=== PATIENT | female | born 1980 | race Caucasian/White ===

== ENCOUNTER 2020-05-22 16:42 | Emergency (ER) | payer BC, OTHER ==
[2020-05-22 17:57] VITALS: BP 122/73; PULSE 64
[2020-05-22] MEDS ORDERED: Bacitracin Oint 1 GM U/D Packet TOP ONE (18:08)
[2020-05-22] MEDS ORDERED: Diphtheria,Pertussis(Acell),Tetanus Vaccine 0.5 ML SDV IM ONE (18:08)
--- NOTE | 2020-05-22 18:11 | EDM.PDOC ---
ED HPI GENERAL MEDICAL PROBLEM - General Chief Complaint: Laceration Stated Complaint: CUT R FOOT Time Seen by Provider: 05/22/20 18:00 Source of Information: Reports: Patient History Limitations: Reports: No Limitations - History of Present Illness INITIAL COMMENTS - FREE TEXT/NARRATIVE: 40-year-old female with 2 small lacerations on the inside aspect of her right ankle. 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: - Past Surgical History GI Surgical History: Reports: Hernia Repair/Other Musculoskeletal Surgical History: Reports: Arthroscopic Knee Social & Family History - Tobacco Use Smoking Status *Q: Never Smoker ED ROS GENERAL - Review of Systems Review Of Systems: See Below Constitutional: Denies: Fever, Chills Respiratory: Denies: Shortness of Breath Cardiovascular: Denies: Chest Pain GI/Abdominal: Denies: Abdominal Pain, Nausea, Vomiting Skin: Reports: Other (No other injury other than the small lacerations on her right ankle) ED EXAM, SKIN/RASH Exam: See Below Exam Limited By: No Limitations General Appearance: Alert, No Apparent Distress Respiratory/Chest: No Respiratory Distress Extremities: Other Neurological: Alert, Oriented Skin: Other (On the medial aspect of the right ankle the patient has 2 small lacerations, one 1 cm long and the other 2 cm long. The small laceration needs no repair, the larger laceration is slightly open so will be Steri-Stripped closed. Both were washed, a small amount of bacitracin applied to the small laceration) Course - Vital Signs Last Recorded V/S: Last Vital Signs Temp 95.8 F L 05/22/20 18:03 Pulse 64 05/22/20 18:03 Resp 16 05/22/20 18:03 BP 122/73 05/22/20 18:03 Pulse Ox 99 05/22/20 18:03 - Orders/Labs/Meds Orders: Active Orders 24 hr Category Date Time Status Vaccines to be Administered [RC] PER UNIT ROUTINE Care 05/22/20 18:08 Active Meds: Medications Discontinued Medications Generic Name Dose Route Start Last Admin Trade Name Milton PRN Reason Stop Dose Admin Bacitracin 1 dose 05/22/20 18:08 05/22/20 18:24 Bacitracin Oint 1 Gm TOP 05/22/20 18:09 1 dose ONETIME ONE Administration Diphtheria/Tetanus/Acell Pertussis 0.5 ml 05/22/20 18:08 05/22/20 18:22 Adacel IM 05/22/20 18:09 0.5 ml .ONCE ONE Administration - Re-Assessments/Exams Free Text/Narrative Re-Assessment/Exam: 05/22/20 18:10 Both lacerations were washed, small amount of bacitracin applied to the small wound with a Band-Aid and Steri-Strips were used to close the 2 cm laceration. Increase activity as tolerated recheck if concerns of infection or not healing satisfactorily. Patient was given a Tdap booster. 05/22/20 18:11 Departure - Departure Time of Disposition: 18:30 Disposition: Home, Self-Care 01 Clinical Impression: Laceration of ankle, medial Qualifiers: Encounter type: initial encounter Laterality: right Qualified Code(s): S91.011A - Laceration without foreign body, right ankle, initial encounter - Discharge Information Instructions: Wound Care, Adult Referrals: Elisha Hays MD [Primary Care Provider] - Forms: ED Department Discharge Care Plan Goals: Keep wounds covered and clean while healing, increase activity as tolerated and consider rechecking if concerns of infection or not healing satisfactorily. Sepsis Event Note (ED) - Evaluation Sepsis Screening Result: No Definite Risk - Focused Exam Vital Signs: Vital Signs Temp Pulse Resp BP Pulse Ox 05/22/20 18:03 95.8 F L 64 16 122/73 99 05/22/20 17:56 95.8 F L 64 16 122/73 99 - My Orders Last 24 Hours: My Active Orders 05/22/20 18:08 Vaccines to be Administered [RC] PER UNIT ROUTINE - Assessment/Plan Last 24 Hours: My Active Orders 05/22/20 18:08 Vaccines to be Administered [RC] PER UNIT ROUTINE
== END 2020-05-22 18:30 | disposition home or self-care (01) ==
LOC: JP.ED 16:42
DX: S91.011A Laceration without foreign body, right ankle, initial encounter (principal); Z23 Encounter for immunization; W26.8XXA Contact with other sharp object(s), not elsewhere classified, initial encounter
CPT/HCPCS: 90471; 90715; 99282